=== PATIENT | male | born 1980 | race Hispanic/Latino ===

== ENCOUNTER 2017-05-19 21:53 | Emergency (ER) | payer SELFPAY ==
[2017-05-19] MEDS ORDERED: methylPREDNISolone Acetate 40 mg/ml Vial ONE (22:11)
== END 2017-05-19 23:09 | disposition home or self-care (01) ==
LOC: BURERS 21:53
DX: K14.8 Other diseases of tongue (principal); T45.0X5A Adverse effect of antiallergic and antiemetic drugs, initial encounter
CPT/HCPCS: 96372; J1030

== ENCOUNTER 2017-05-21 01:13 | Emergency (ER) | payer OTHER, SELFPAY ==
[2017-05-21] MEDS ORDERED: Metoprolol Tartrate 5 MG/5 ML VIAL ONE (01:41)
[2017-05-21] MEDS ORDERED: hydrOXYzine 25 MG TAB ONE (01:43)
[2017-05-21] MEDS ORDERED: Atenolol 50 MG TAB PO SCH (02:00)
== END 2017-05-21 02:20 | disposition home or self-care (01) ==
LOC: BURERS 01:13
DX: R20.2 Paresthesia of skin (principal); I10 Essential (primary) hypertension; Z91.14 Patient's other noncompliance with medication regimen
CPT/HCPCS: 99283